=== PATIENT | male | born 1995 | race African-American/Black ===

== ENCOUNTER 2019-03-10 12:54 | Inpatient (IN) | payer MEDICAID ==
[~2019-03-10] VITALS: Ht 195.6 cm; Wt 86.1 kg
[2019-03-10] MEDS ORDERED: HALO5TAB2 PO (13:35)
[2019-03-10 14:05] LABS: BASOPHILS % (AUTO) 0.5 % (0.0-2.0); EOSINOPHILS % (AUTO) 1.7 % (1.0-6.0); HEMATOCRIT 44.5 % (41-53); HEMOGLOBIN 14.4 g/dL (13.5-17.5); LYMPHOCYTES # (AUTO) 1.9 K/uL (1.0-4.8); LYMPHOCYTES % (AUTO) 30.7 % (22.0-44.0); MEAN CORPUSCULAR HEMOGLOBIN 27.1 pg (26.0-34.0); MEAN CORPUSCULAR HGB CONC 32.2 G/dL (31.0-37.0); MEAN CORPUSCULAR VOLUME 84 fL (80-100); MONOCYTES # (AUTO) 0.5 K/uL (0.1-1.0); MONOCYTES % (AUTO) 8.3 % (2.0-9.0); NEUTROPHILS # (AUTO) 3.7 K/uL (1.8-7.7); NEUTROPHILS % (AUTO) 58.8 % (40.0-70.0); PLATELET COUNT (AUTO) 215 K/uL (150-450); RED CELL DISTRIBUTION WIDTH 13.5 % (11.5-14.5)
[2019-03-10 14:13] LABS: ANION GAP 8 mmol/L (8-16); CALCIUM, TOTAL 9.5 mg/dL (8.8-10.5); CARBON DIOXIDE 28 mmol/L (22-29); CHLORIDE 103 mmol/L (98-107); CREATININE 0.91 mg/dL (0.60-1.30); GLOMERULAR FILTR. RATE CALC > 60 mL/min (>60); GLUCOSE,RANDOM 82 mg/dL (70-110); POTASSIUM 4.3 mmol/L (3.5-5.1); SODIUM SERUM 139 mmol/L (136-145); UREA NITROGEN, BLOOD 10 mg/dL (7-18)
[2019-03-10 14:20] LABS: ALANINE AMINOTRANSFERASE 48 U/L (12-78); ALKALINE PHOSPHATASE 96 U/L (46-116); ASPARTATE AMINOTRANSFERASE 37 U/L (15-37); BILIRUBIN,TOTAL 0.4 mg/dL (0.1-1.0); TOTAL PROTEIN, SERUM 7.9 g/dL (6.4-8.2)
[2019-03-10] MEDS ORDERED: ZOLPIDEM TARTRATE 10 MG TABLET PO PRN (16:30)
[2019-03-10] MEDS ORDERED: HALOPERIDOL 5 MG TABLET PO PRN (16:30)
[2019-03-10] MEDS ORDERED: ACETAMINOPHEN 325 MG TABLET PO PRN (16:45)
[2019-03-10] MEDS ORDERED: IBUPROFEN 400 MG TABLET PO PRN (16:45)
[2019-03-10 19:25] VITALS: BP 122/75
[2019-03-11 06:08] LABS: BASOPHILS % (AUTO) 0.6 % (0.0-2.0); EOSINOPHILS % (AUTO) 3.1 % (1.0-6.0); HEMOGLOBIN 14.5 g/dL (13.5-17.5); LYMPHOCYTES # (AUTO) 2.1 K/uL (1.0-4.8); LYMPHOCYTES % (AUTO) 38.1 % (22.0-44.0); MEAN CORPUSCULAR HEMOGLOBIN 27.2 pg (26.0-34.0); MEAN CORPUSCULAR HGB CONC 32.2 G/dL (31.0-37.0); MEAN CORPUSCULAR VOLUME 85 fL (80-100); MONOCYTES # (AUTO) 0.6 K/uL (0.1-1.0); NEUTROPHILS # (AUTO) 2.7 K/uL (1.8-7.7); NEUTROPHILS % (AUTO) 48.2 % (40.0-70.0); PLATELET COUNT (AUTO) 200 K/uL (150-450); RED BLOOD CELL COUNT(AUTO) 5.31 MIL/uL (4.50-5.90); RED CELL DISTRIBUTION WIDTH 13.2 % (11.5-14.5)
[2019-03-11 06:16] LABS: HEMOGLOBIN A1C 5.7 % (4.5-6.2)
[2019-03-11 06:38] LABS: ALANINE AMINOTRANSFERASE 41 U/L (12-78); ALBUMIN 3.7 g/dL (3.4-5.0); ALKALINE PHOSPHATASE 93 U/L (46-116); ANION GAP 5 mmol/L (8-16); ASPARTATE AMINOTRANSFERASE 26 U/L (15-37); BILIRUBIN,TOTAL 0.5 mg/dL (0.1-1.0); CALCIUM, TOTAL 9.5 mg/dL (8.8-10.5); CARBON DIOXIDE 29 mmol/L (22-29); CHLORIDE 105 mmol/L (98-107); CHOL/HDL RATIO 2.6 (4.2-7.3); CHOLESTEROL 140 mg/dL (131-200); CREATININE 1.22 mg/dL (0.60-1.30); GLOMERULAR FILTR. RATE CALC > 60 mL/min (>60); GLUCOSE,RANDOM 91 mg/dL (70-110); HDL CHOLESTEROL 54 mg/dL (40-60); LDL CHOL (CALC.) 76 mg/dL (0-130); POTASSIUM 4.5 mmol/L (3.5-5.1); SODIUM SERUM 139 mmol/L (136-145); THYROID STIMULATING HORMONE 0.43 uIU/mL (0.36-3.74); TRIGLYCERIDES 51 mg/dL (15-150); UREA NITROGEN, BLOOD 15 mg/dL (7-18)
[2019-03-11 08:45] VITALS: BP 110/59
[2019-03-11] MEDS ORDERED: DOCUSATE SODIUM 100 MG CAPSULE PO PRN (13:15)
[2019-03-11] MEDS ORDERED: GuaiFENesin/D-METHORPHAN [SUGAR-FREE] 200-20MG/10 ML SYRUP UDCUP PO PRN (13:15)
[2019-03-11] MEDS ORDERED: IBUPROFEN 400 MG TABLET PO PRN (13:15)
[2019-03-11] MEDS ORDERED: ONDANSETRON HCL 4 MG TABLET PO PRN (13:15)
[2019-03-11] MEDS ORDERED: ALBUTEROL SULFATE HFA 90 MCG/PUFF 8 GM INHALER IH PRN (13:15)
[2019-03-11] MEDS ORDERED: MAG HYDROX/AL HYDROX/SIMETH ES 30 ML SUSPENSION UDCUP PO PRN (13:15)
[2019-03-11] MEDS ORDERED: NICOTINE 14 MG/24 HOUR PATCH TD PRN (13:15)
[2019-03-11] MEDS ORDERED: CloNIDine HCL 0.1 MG TABLET PO PRN (13:15)
[2019-03-11] MEDS ORDERED: LOPERAMIDE HCL 2 MG CAPSULE PO PRN (13:15)
[2019-03-11] MEDS ORDERED: ACETAMINOPHEN 325 MG TABLET PO PRN (13:15)
[2019-03-11] MEDS ORDERED: MAGNESIUM HYDROXIDE SUSPENSION 30 ML UDCUP PO PRN (13:15)
[2019-03-11] MEDS ORDERED: PETROLATUM,WHITE 28 GM JELLY TP PRN (13:15)
[2019-03-11] MEDS: HALOPERIDOL 5 MG TABLET PO SCH (20:41)
[2019-03-12 08:37] VITALS: BP 101/55
[2019-03-12 16:00] VITALS: BP 123/81
[2019-03-12] MEDS: HALOPERIDOL 5 MG TABLET PO SCH (20:06)
[2019-03-13 12:20] VITALS: BP 121/78
[2019-03-13 16:00] VITALS: BP 120/65
[2019-03-13] MEDS: HALOPERIDOL 5 MG TABLET PO SCH (20:13)
[2019-03-14] MEDS: LORazepam 2 MG TABLET PO PRN (16:08)
[2019-03-14 16:50] VITALS: BP 125/78
[2019-03-14] MEDS: HALOPERIDOL 10 MG TABLET PO SCH (21:08)
[2019-03-15 16:29] VITALS: BP 103/53
[2019-03-15] MEDS: HALOPERIDOL 10 MG TABLET PO SCH (20:20)
[2019-03-16 08:05] VITALS: BP 105/63
[2019-03-16] MEDS: LORazepam 2 MG TABLET PO PRN (15:57)
[2019-03-16 16:30] VITALS: BP 127/61
[2019-03-16] MEDS: HALOPERIDOL 10 MG TABLET PO SCH (20:42)
[2019-03-17 08:00] VITALS: BP 114/63
[2019-03-17] MEDS: LORazepam 2 MG TABLET PO PRN (16:26)
[2019-03-17 16:45] VITALS: BP_SYST 124; BP_SYST 71; BP_DIAS 77
[2019-03-17] MEDS: HALOPERIDOL 10 MG TABLET PO SCH (21:03)
[2019-03-18 08:16] VITALS: BP 112/71
[2019-03-18 16:00] VITALS: BP 147/93
[2019-03-18] MEDS: HALOPERIDOL 10 MG TABLET PO SCH (20:14)
[2019-03-19] MEDS ORDERED: HALO10 PO (10:12)
[2019-03-19 12:11] VITALS: BP 123/83
== END 2019-03-19 15:09 | disposition home or self-care (01) | DRG 750 ==
LOC: EMS 12:56 → 3EC 18:09
PROVIDERS: ADMIT Psychiatry & Neurology Child & Adolescent Psychiatry; ATTEND Psychiatry & Neurology Child & Adolescent Psychiatry
DX: F25.0 Schizoaffective disorder, bipolar type (principal); I95.9 Hypotension, unspecified; R45.851 Suicidal ideations; F17.210 Nicotine dependence, cigarettes, uncomplicated; F10.10 Alcohol abuse, uncomplicated; R45.87 Impulsiveness
CPT/HCPCS: 83036; 84443; 87081; G0480